=== PATIENT | female | born 1990 | race Caucasian/White ===

== ENCOUNTER 2018-04-24 15:09 | Emergency (ER) | payer SELFPAY ==
[~2018-04-24] VITALS: Ht 165.1 cm; Wt 58.6 kg
[2018-04-24 15:31] VITALS: BP 121/69; PULSE 62; RESP 20; Ht 165.1 cm; Wt 58.6 kg
== END 2018-04-24 18:40 | disposition left against medical advice (07) ==
LOC: FTE 15:09
DX: Z53.21 Procedure and treatment not carried out due to patient leaving prior to being seen by health care provider (principal)